=== PATIENT | female | born 1990 | race Caucasian/White ===

== ENCOUNTER 2019-11-11 17:08 | Emergency (ER) | payer MEDICAID ==
[2019-11-11 17:41] VITALS: BP 143/92
--- NOTE | 2019-11-11 17:58 | ER Document Report ---
ED Medical Screen (RME) - General Stated Complaint: SPIDER BITE Time Seen by Provider: 11/11/19 17:51 Primary Care Provider: ЕЛЕНА JAEGER MD [Primary Care Provider] - Follow up as needed Mode of Arrival: Ambulatory Information source: Patient Notes: 29-year-old female patient presented to the emergency department with complaints of possible spider bite. Patient has an area of erythema to her left lower extremity near her left ankle, she also has 2 areas on her right thigh. She states she saw a brown spider. Patient appears to be very anxious, she is tachycardic. She reports she has been having fever and chills at home. She denies any drug use. She does have an area on her left AC that could be consistent with repeated of any puncture. She states she has not seen her docto r in 2 months. She is tearful. She states she is on Procardia for blood pressure issues and Lasix for "fluid" but has been out for 1 week. She denies any history of CHF. She denies any chest pain currently. I have greeted and performed a rapid initial assessment of this patient. A comprehensive ED assessment and evaluation of the patient, analysis of test results and completion of the medical decision making process will be conducted by additional ED providers. I have specifically instructed the patient or family members with the patient to immediately return to any nursing staff should anything change in the patient's condition or with their chief complaint. - Related Data Allergies/Adverse Reactions: metronidazole [From Flagyl] Allergy (Verified 07/16/11 01:39) Metronidazole HCl [From Flagyl] Allergy (Verified 07/16/11 01:39) NSAIDS (Non-Steroidal Anti-Inflamma Allergy (Verified 11/11/19 17:51) Penicillins Allergy (Verified 07/16/11 01:39) tramadol Allergy (Verified 11/11/19 17:51) Past Medical History Past Surgical History: Reports: Hx Section - Immunizations Hx Diphtheria, Pertussis, Tetanus Vaccination: Yes Physical Exam - Vital signs Vitals: Temp Pulse Resp BP Pulse Ox 98.4 F 118 H 18 143/92 H 97 11/11/19 17:40 11/11/19 17:40 11/11/19 17:40 11/11/19 17:40 11/11/19 17:40 Course - Vital Signs Vital signs: Temp Pulse Resp BP Pulse Ox 98.4 F 118 H 18 143/92 H 97 11/11/19 17:40 11/11/19 17:40 11/11/19 17:40 11/11/19 17:40 11/11/19 17:40 Doctor's Discharge - Discharge Referrals: ЕЛЕНА JAEGER MD [Primary Care Provider] - Follow up as needed
[2019-11-11 18:23] LABS: ABSOLUTE BASOPHILS # (AUTO) 0.1 10^3/uL (0.0-0.2); ABSOLUTE EOSINOPHILS # (AUTO) 0.1 10^3/uL (0.0-0.6); ABSOLUTE LYMPHOCYTES (AUTO) 2.7 10^3/uL (0.5-4.7); ABSOLUTE MONOCYTES (AUTO) 0.9 10^3/uL (0.1-1.4); ABSOLUTE NEUT (AUTO) 9.8 10^3/uL (1.7-8.2); BASOPHILS % (AUTO) 0.6 % (0-2); HEMATOCRIT 46.1 % (36.0-47.0); HEMOGLOBIN 16.2 g/dL (12.0-15.5); LYMPHOCYTES % (AUTO) 19.9 % (13-45); MEAN CORPUSCULAR HEMOGLOBIN 30.3 pg (27.0-33.4); MEAN CORPUSCULAR HGB CONC 35.1 g/dL (32.0-36.0); MEAN CORPUSCULAR VOLUME 86 fl (80-97); MONOCYTES % (AUTO) 6.3 % (3-13); PLATELET COUNT 392 10^3/uL (150-450); RED BLOOD COUNT 5.33 10^6/uL (3.72-5.28); RED CELL DISTRIBUTION WIDTH 13.4 % (11.5-14.0); SEGMENTED NEUTROPHILS % (AUTO) 72.2 % (42-78); TOTAL CELLS COUNTED % (AUTO) 100 %; WHITE BLOOD COUNT 13.6 10^3/uL (4.0-10.5)
[2019-11-11 18:44] LABS: ALBUMIN 4.8 g/dL (3.5-5.0); ALKALINE PHOSPHATASE 99 U/L (38-126); ANION GAP 12 (5-19); ASPARTATE AMINO TRANSFERASE 29 U/L (14-36); BILIRUBIN,DIRECT 0.3 mg/dL (0.0-0.4); BILIRUBIN,TOTAL 0.6 mg/dL (0.2-1.3); BLOOD UREA NITROGEN 8 mg/dL (7-20); CARBON DIOXIDE 24 mmol/L (22-30); CHLORIDE 105 mmol/L (98-107); GLUCOSE 110 mg/dL (75-110); POTASSIUM 4.2 mmol/L (3.6-5.0)
[2019-11-11 18:56] LABS: APPEARANCE,URINE CLOUDY; BILIRUBIN,URINE NEGATIVE (NEGATIVE); COLOR,URINE YELLOW; GLUCOSE, URINE NEGATIVE (NEGATIVE); KETONES,URINE NEGATIVE (NEGATIVE); LEUKOCYTE ESTERASE,URINE MODERATE (NEGATIVE); NITRITE,URINE POSITIVE (NEGATIVE); PROTEIN,URINE NEGATIVE (NEGATIVE); URINE SPECIFIC GRAVITY 1.006; UROBILINOGEN,URINE NEGATIVE mg/dL (<2.0)
[2019-11-11 19:06] LABS: URINE BARBITURATES SCREEN NEGATIVE; URINE BENZODIAZEPINES SCREEN NEGATIVE; URINE COCAINE SCREEN NEGATIVE; URINE MARIJUANA (THC) SCREEN NEGATIVE; URINE METHADONE SCREEN NEGATIVE; URINE PHENCYCLIDINE SCREEN NEGATIVE
[2019-11-11 19:19] LABS: ADD MANUAL MICROSCOPIC YES; RBC,URINE 0-1 /HPF
[2019-11-11 19:20] LABS: BACTERIA,URINE 1+ /HPF
== END 2019-11-11 21:30 | disposition left against medical advice (07) ==
LOC: ER 17:08 → EEVIPCON 17:08 → ER 21:30
DX: S90.562A Insect bite (nonvenomous), left ankle, initial encounter (principal); R00.0 Tachycardia, unspecified; W57.XXXA Bitten or stung by nonvenomous insect and other nonvenomous arthropods, initial encounter
CPT/HCPCS: 36415; 80053; 80307; 81001; 83605; 84703; 85025; 87040; 99281